=== PATIENT | female | born 1960 | race Caucasian/White ===

== ENCOUNTER 2018-07-16 12:32 | Emergency (ER) | payer MEDICAID ==
[~2018-07-16] VITALS: Ht 170.2 cm; Wt 70.5 kg
[2018-07-16 13:33] LABS: BASOPHILS # (AUTO) 0.04 x10^3/uL (0-0.1); BASOPHILS % (AUTO) 1 % (0-1); EOSINOPHILS # (AUTO) 0.05 x10^3/uL (0-0.4); EOSINOPHILS % (AUTO) 1 % (1-7); LYMPHOCYTES # (AUTO) 1.33 x10^3/uL (1-3.4); LYMPHOCYTES % (AUTO) 18 % (22-44); MD NO; MEAN CORPUSCULAR HEMOGLOBIN 31.2 pg (27.0-34.8); MEAN CORPUSCULAR HGB CONC 33.3 g/dL (32.4-35.8); MEAN CORPUSCULAR VOLUME 93.7 fL (80-100); MEAN PLATELET VOLUME 8.6 fL (7.4-10.4); MONOCYTES # (AUTO) 1.09 x10^3/uL (0.2-0.8); MONOCYTES % (AUTO) 15 % (2-9); NEUTROPHILS # (AUTO) 4.91 x10^3/uL (1.8-6.8); NEUTROPHILS % (AUTO) 66 % (42-75); PLATELET COUNT 267 x10^3/uL (130-400); RED BLOOD COUNT 4.84 x10^6/uL (3.82-5.3); RED CELL DISTRIBUTION WIDTH 15.7 % (9.6-15.2)
[2018-07-16 13:42] LABS: ALANINE AMINOTRANSFERASE 82 U/L (12-78); ALBUMIN 3.4 g/dL (3.4-5.0); ANION GAP 10 mmol/L (5-15); CALCIUM 8.9 mg/dL (8.5-10.1); CHLORIDE 102 mmol/L (98-107)
[2018-07-16 13:45] LABS: ALKALINE PHOSPHATASE 180 U/L (45-117); BILIRUBIN,TOTAL 1.1 mg/dL (0.2-1.0); TOTAL PROTEIN 7.7 g/dL (6.4-8.2)
[2018-07-16 14:28] LABS: CULTURE INDICATED? YES; MICROSCOPIC INDICATED
[2018-07-16 14:44] VITALS: BP 133/88
[2018-07-16 14:58] LABS: CLOSTRIDIUM DIFFICILE ANTIGEN NEGATIVE; CLOSTRIDIUM DIFFICILE TOXIN NEGATIVE (Negative)
[2018-07-16] MEDS ORDERED: POTASSIUM CHLORIDE 20 MEQ TAB.ER.PRT PO ONE (15:30)
[2018-07-16] MEDS ORDERED: POTASSIUM CHLORIDE 20 MEQ TAB.ER.PRT ONE (15:36)
== END 2018-07-16 15:58 | disposition home or self-care (01) ==
LOC: ED 15:15
DX: K70.10 Alcoholic hepatitis without ascites (principal); R10.32 Left lower quadrant pain; R19.7 Diarrhea, unspecified; E87.6 Hypokalemia; I10 Essential (primary) hypertension; Z85.3 Personal history of malignant neoplasm of breast
CPT/HCPCS: 36415; 80053; 81001; 85025; 87086; 87324; 89055; 99284

== ENCOUNTER 2018-07-21 08:44 | Inpatient (IN) | payer MEDICAID ==
[~2018-07-21] VITALS: Ht 170.2 cm; Wt 67.0 kg
[2018-07-21] MEDS ORDERED: BISO1TAB14 PO (10:16)
[2018-07-21] MEDS ORDERED: EXEM25TA PO-COUM (10:16)
[2018-07-21 10:31] LABS: INTERNATIONAL NORMALIZED RATIO 1.01 (0.93-1.1); PROTHROMBIN TIME 10.4 Seconds (9.6-11.5)
[2018-07-21 10:33] LABS: ALANINE AMINOTRANSFERASE 51 U/L (12-78); ALBUMIN 2.9 g/dL (3.4-5.0); ANION GAP 10 mmol/L (5-15); CHLORIDE 98 mmol/L (98-107); CREATININE 0.53 mg/dL (0.55-1.02)
[2018-07-21 10:35] LABS: ALKALINE PHOSPHATASE 177 U/L (45-117); BILIRUBIN,TOTAL 0.7 mg/dL (0.2-1.0); TOTAL PROTEIN 7.2 g/dL (6.4-8.2)
[2018-07-21 10:42] LABS: MEAN CORPUSCULAR HEMOGLOBIN 30.7 pg (27.0-34.8); MEAN CORPUSCULAR HGB CONC 33.2 g/dL (32.4-35.8); MEAN CORPUSCULAR VOLUME 92.3 fL (80-100); MEAN PLATELET VOLUME 8.1 fL (7.4-10.4); PLATELET COUNT 462 x10^3/uL (130-400); RED BLOOD COUNT 4.81 x10^6/uL (3.82-5.3); RED CELL DISTRIBUTION WIDTH 15.5 % (9.6-15.2)
[2018-07-21 10:59] LABS: CULTURE INDICATED? YES; MICROSCOPIC INDICATED
[2018-07-21 11:14] LABS: BASOPHILS # (AUTO) 0.03 x10^3/uL (0-0.1); BASOPHILS % (AUTO) 0 % (0-1); EOSINOPHILS # (AUTO) 0.02 x10^3/uL (0-0.4); EOSINOPHILS % (AUTO) 0 % (1-7); LYMPHOCYTES # (AUTO) 0.91 x10^3/uL (1-3.4); LYMPHOCYTES % (AUTO) 10 % (22-44); MD SCAN; MONOCYTES # (AUTO) 1.21 x10^3/uL (0.2-0.8); MONOCYTES % (AUTO) 13 % (2-9); NEUTROPHILS # (AUTO) 7.21 x10^3/uL (1.8-6.8); NEUTROPHILS % (AUTO) 77 % (42-75)
[2018-07-21] MEDS ORDERED: OMNIPAQUE 350 MG/ML, 100ML BOTTLE ONE (12:18)
[2018-07-21] MEDS ORDERED: CEFEPIME 1 GM in DEXTROSE 5% 50 ML IV ONE (13:30)
[2018-07-21] MEDS ORDERED: METRONIDAZOLE PMX 500MG/100ML 100 ML IV ONE (13:30)
[2018-07-21 14:30] VITALS: BP 164/101
[2018-07-21 14:38] VITALS: BP 164/101
[2018-07-21] MEDS ORDERED: morphine SULFATE 10 MG/ML, 1ML IVPush PRN (15:30)
[2018-07-21] MEDS ORDERED: ONDANSETRON 2MG/ML, 2ML IVPush PRN (15:30)
[2018-07-21] MEDS ORDERED: PROMETHAZINE 25 MG/ML, 1ML IM PRN (15:30)
[2018-07-21] MEDS ORDERED: hydrALAzine 20 MG/ML, 1ML IVPush PRN (15:30)
[2018-07-21] MEDS ORDERED: NICOTINE 14MG/24 HR PATCH.TD24 TD SCH (16:30)
[2018-07-21] MEDS: PIPERACILLIN/TAZO/PMX 3.375GM 50 ML IV SCH ×2 (16:49→22:12)
[2018-07-21] MEDS: NS + 20MEQ KCL 1,000 ML IV SCH (16:49)
[2018-07-21 18:07] VITALS: BP 147/85
[2018-07-21] MEDS: HYDROmorphone 2 MG/ML, 1ML IVPush PRN ×3 (18:49→22:20)
[2018-07-21 19:37] VITALS: BP 151/85
[2018-07-22 02:47] VITALS: BP 142/90
[2018-07-22] MEDS: HYDROmorphone 2 MG/ML, 1ML IVPush PRN ×2 (03:14→05:16)
[2018-07-22] MEDS: NS + 20MEQ KCL 1,000 ML IV SCH (04:55)
[2018-07-22] MEDS: PIPERACILLIN/TAZO/PMX 3.375GM 50 ML IV SCH (05:03)
[2018-07-22 05:26] LABS: BASOPHILS # (AUTO) 0.05 x10^3/uL (0-0.1); BASOPHILS % (AUTO) 1 % (0-1); EOSINOPHILS # (AUTO) 0.04 x10^3/uL (0-0.4); EOSINOPHILS % (AUTO) 1 % (1-7); LYMPHOCYTES # (AUTO) 1.21 x10^3/uL (1-3.4); LYMPHOCYTES % (AUTO) 15 % (22-44); MD NO; MEAN CORPUSCULAR HEMOGLOBIN 30.7 pg (27.0-34.8); MEAN CORPUSCULAR HGB CONC 33.1 g/dL (32.4-35.8); MEAN PLATELET VOLUME 7.9 fL (7.4-10.4); MONOCYTES # (AUTO) 1.26 x10^3/uL (0.2-0.8); MONOCYTES % (AUTO) 16 % (2-9); NEUTROPHILS # (AUTO) 5.47 x10^3/uL (1.8-6.8); NEUTROPHILS % (AUTO) 68 % (42-75); PLATELET COUNT 403 x10^3/uL (130-400); RED BLOOD COUNT 4.47 x10^6/uL (3.82-5.3); RED CELL DISTRIBUTION WIDTH 15.3 % (9.6-15.2)
[2018-07-22 05:40] LABS: CHLORIDE 102 mmol/L (98-107)
[2018-07-22 05:55] LABS: ALANINE AMINOTRANSFERASE 37 U/L (12-78); ALBUMIN 2.5 g/dL (3.4-5.0); ALKALINE PHOSPHATASE 136 U/L (45-117); ANION GAP 9 mmol/L (5-15); BILIRUBIN,TOTAL 0.8 mg/dL (0.2-1.0); CALCIUM 8.2 mg/dL (8.5-10.1); CREATININE 0.62 mg/dL (0.55-1.02); TOTAL PROTEIN 6.3 g/dL (6.4-8.2)
[2018-07-22 08:41] VITALS: BP 125/85
[2018-07-22] MEDS ORDERED: FENTANYL PF 100 MCG/2ML ONE (12:08)
[2018-07-22] MEDS ORDERED: MIDAZOLAM 1 MG/ML, 2ML ONE ×2 (12:08→13:54)
[2018-07-22] MEDS ORDERED: LIDOCAINE-MPF 2% ,5ML ONE (12:28)
[2018-07-22] MEDS ORDERED: PROPOFOL 10 MG/ML, 20ML ONE (12:28)
[2018-07-22] MEDS ORDERED: DEXAMETHASONE 4 MG/ML, 1ML ONE (12:29)
[2018-07-22] MEDS ORDERED: EPHEDRINE 50 MG/ML, 1ML ONE (12:29)
[2018-07-22] MEDS ORDERED: METOCLOPRAMIDE 5 MG/ML, 2ML ONE (12:29)
[2018-07-22] MEDS ORDERED: ONDANSETRON 2MG/ML, 2ML ONE (12:29)
[2018-07-22] MEDS ORDERED: ROCURONIUM 10MG/ML,5ML ONE (12:30)
[2018-07-22] MEDS ORDERED: MEPERIDINE/PF 100 MG/ML ONE (12:42)
[2018-07-22] MEDS ORDERED: GLYCOPYRROLATE 0.4 MG/2 ML, 2ML ONE ×2 (13:16)
[2018-07-22] MEDS ORDERED: NEOSTIGMINE 1 MG/ML, 10ML ONE (13:16)
[2018-07-22] MEDS ORDERED: HYDROmorphone 2 MG/ML, 1ML ONE (13:55)
[2018-07-22] MEDS: HYDROmorphone 1 MG/ML, 1ML IV PRN ×4 (13:56→14:57)
[2018-07-22] MEDS ORDERED: hydrALAzine 20 MG/ML, 1ML ONE (13:58)
[2018-07-22] MEDS ORDERED: OXYcodone 5 MG/5 ML ORAL.SOL UDC PO PRN (14:00)
[2018-07-22] MEDS ORDERED: MEPERIDINE/PF 25MG/0.5ML IVPush PRN (14:00)
[2018-07-22] MEDS ORDERED: LABETALOL 5MG/ML, 20ML IV PRN (14:00)
[2018-07-22] MEDS ORDERED: ONDANSETRON 2MG/ML, 2ML IVPush PRN (14:00)
[2018-07-22] MEDS ORDERED: FENTANYL PF 100 MCG/2ML IV PRN (14:00)
[2018-07-22] MEDS: MIDAZOLAM 1 MG/ML, 2ML IV PRN ×2 (14:05→14:43)
[2018-07-22] MEDS ORDERED: hydrALAzine 20 MG/ML, 1ML IV PRN (14:30)
[2018-07-22 15:37] VITALS: BP 120/75
[2018-07-22] MEDS: morphine SULFATE 10 MG/ML, 1ML IV PRN ×3 (16:29→22:07)
[2018-07-22] MEDS ORDERED: LORazepam 2 MG/ML, 1ML IV PRN (16:30)
[2018-07-22] MEDS ORDERED: LORazepam 1MG TABLET PO PRN (16:30)
[2018-07-22] MEDS ORDERED: ONDANSETRON 2MG/ML, 2ML IV PRN (16:30)
[2018-07-22] MEDS: CEFOTETAN PMX 1GM/50ML 50 ML IVPB SCH (16:42)
[2018-07-22] MEDS: POTASSIUM CHLORIDE 20 MEQ in D5%-0.45% NACL 1,000 ML IV SCH (16:42)
[2018-07-22] MEDS: METRONIDAZOLE PMX 500MG/100ML 100 ML IVPB SCH (18:14)
[2018-07-22 18:45] VITALS: BP 119/77
[2018-07-22] MEDS: ENOXAPARIN 40 MG/0.4 ML SQ SCH (20:32)
[2018-07-22 23:56] VITALS: BP 122/70
[2018-07-23] MEDS: POTASSIUM CHLORIDE 20 MEQ in D5%-0.45% NACL 1,000 ML IV SCH ×3 (01:12→19:49)
[2018-07-23] MEDS: morphine SULFATE 10 MG/ML, 1ML IV PRN ×7 (01:12→20:51)
[2018-07-23] MEDS: METRONIDAZOLE PMX 500MG/100ML 100 ML IVPB SCH ×3 (01:12→17:43)
[2018-07-23 02:41] VITALS: BP 131/78
[2018-07-23] MEDS: CEFOTETAN PMX 1GM/50ML 50 ML IVPB SCH ×2 (04:52→16:13)
[2018-07-23 05:40] LABS: BASOPHILS # (AUTO) 0.02 x10^3/uL (0-0.1); BASOPHILS % (AUTO) 0 % (0-1); EOSINOPHILS # (AUTO) 0.02 x10^3/uL (0-0.4); EOSINOPHILS % (AUTO) 0 % (1-7); LYMPHOCYTES # (AUTO) 1.24 x10^3/uL (1-3.4); LYMPHOCYTES % (AUTO) 13 % (22-44); MD NO; MEAN CORPUSCULAR HEMOGLOBIN 31.1 pg (27.0-34.8); MEAN CORPUSCULAR HGB CONC 33.4 g/dL (32.4-35.8); MEAN CORPUSCULAR VOLUME 93.4 fL (80-100); MONOCYTES # (AUTO) 1.15 x10^3/uL (0.2-0.8); MONOCYTES % (AUTO) 12 % (2-9); NEUTROPHILS # (AUTO) 7.02 x10^3/uL (1.8-6.8); NEUTROPHILS % (AUTO) 74 % (42-75); PLATELET COUNT 443 x10^3/uL (130-400); RED BLOOD COUNT 4.44 x10^6/uL (3.82-5.3); RED CELL DISTRIBUTION WIDTH 15.1 % (9.6-15.2)
[2018-07-23 05:50] LABS: ALBUMIN 2.4 g/dL (3.4-5.0); ANION GAP 6 mmol/L (5-15); CALCIUM 8.1 mg/dL (8.5-10.1); CHLORIDE 101 mmol/L (98-107)
[2018-07-23 05:53] LABS: ALANINE AMINOTRANSFERASE 29 U/L (12-78); ALKALINE PHOSPHATASE 106 U/L (45-117); BILIRUBIN,TOTAL 0.6 mg/dL (0.2-1.0)
[2018-07-23 07:32] VITALS: BP 138/82
[2018-07-23] MEDS: EXEMESTANE 25 MG PO SCH (09:00)
[2018-07-23] MEDS: BISOPROLOL PO SCH ×2 (09:00→17:53)
[2018-07-23] MEDS: HCTZ PO SCH ×2 (09:00→17:53)
[2018-07-23 13:06] VITALS: BP 145/81
[2018-07-23] MEDS ORDERED: MORPHINE SULFATE 4 MG/ML, 1ML ONE (16:19)
[2018-07-23 19:00] VITALS: BP 137/84
[2018-07-23] MEDS: ENOXAPARIN 40 MG/0.4 ML SQ SCH (19:49)
[2018-07-24 01:01] VITALS: BP 134/87
[2018-07-24] MEDS: METRONIDAZOLE PMX 500MG/100ML 100 ML IVPB SCH ×3 (01:04→17:23)
[2018-07-24] MEDS: morphine SULFATE 10 MG/ML, 1ML IV PRN ×6 (04:13→22:44)
[2018-07-24] MEDS: CEFOTETAN PMX 1GM/50ML 50 ML IVPB SCH ×2 (04:30→16:18)
[2018-07-24] MEDS: POTASSIUM CHLORIDE 20 MEQ in D5%-0.45% NACL 1,000 ML IV SCH ×2 (05:15→15:23)
[2018-07-24 05:24] LABS: BASOPHILS # (AUTO) 0.02 x10^3/uL (0-0.1); BASOPHILS % (AUTO) 0 % (0-1); EOSINOPHILS # (AUTO) 0.17 x10^3/uL (0-0.4); EOSINOPHILS % (AUTO) 2 % (1-7); LYMPHOCYTES # (AUTO) 0.83 x10^3/uL (1-3.4); LYMPHOCYTES % (AUTO) 10 % (22-44); MD NO; MEAN CORPUSCULAR HEMOGLOBIN 30.6 pg (27.0-34.8); MEAN CORPUSCULAR HGB CONC 32.6 g/dL (32.4-35.8); MEAN PLATELET VOLUME 7.7 fL (7.4-10.4); MONOCYTES # (AUTO) 0.83 x10^3/uL (0.2-0.8); MONOCYTES % (AUTO) 10 % (2-9); NEUTROPHILS # (AUTO) 6.62 x10^3/uL (1.8-6.8); NEUTROPHILS % (AUTO) 78 % (42-75); PLATELET COUNT 389 x10^3/uL (130-400); RED BLOOD COUNT 4.24 x10^6/uL (3.82-5.3); RED CELL DISTRIBUTION WIDTH 15.1 % (9.6-15.2)
[2018-07-24 05:33] LABS: CHLORIDE 100 mmol/L (98-107)
[2018-07-24 05:36] LABS: ANION GAP 6 mmol/L (5-15); CALCIUM 7.8 mg/dL (8.5-10.1); CREATININE 0.48 mg/dL (0.55-1.02)
[2018-07-24 07:36] VITALS: BP 146/88
[2018-07-24] MEDS: EXEMESTANE 25 MG PO SCH (08:49)
[2018-07-24] MEDS: FAMOTIDINE 20 MG/2 ML IVPush SCH ×2 (12:04→22:53)
[2018-07-24 15:19] VITALS: BP 146/92
[2018-07-24] MEDS: ENOXAPARIN 40 MG/0.4 ML SQ SCH (22:53)
[2018-07-25] MEDS: METRONIDAZOLE PMX 500MG/100ML 100 ML IVPB SCH ×3 (01:03→18:14)
[2018-07-25] MEDS: NICOTINE 14MG/24 HR PATCH.TD24 TD SCH (01:03)
[2018-07-25] MEDS: morphine SULFATE 10 MG/ML, 1ML IV PRN ×8 (01:03→23:58)
[2018-07-25 01:59] VITALS: BP 137/94
[2018-07-25] MEDS: CEFOTETAN PMX 1GM/50ML 50 ML IVPB SCH ×2 (05:07→16:30)
[2018-07-25] MEDS: POTASSIUM CHLORIDE 20 MEQ in D5%-0.45% NACL 1,000 ML IV SCH (05:07)
[2018-07-25 05:18] LABS: ANION GAP 7 mmol/L (5-15); CALCIUM 7.7 mg/dL (8.5-10.1); CHLORIDE 102 mmol/L (98-107); CREATININE 0.58 mg/dL (0.55-1.02)
[2018-07-25 07:52] VITALS: BP 145/94
[2018-07-25] MEDS ORDERED: MORPHINE SULFATE 4 MG/ML, 1ML ONE ×2 (08:22→12:39)
[2018-07-25] MEDS: BISOPROLOL PO SCH (08:24)
[2018-07-25] MEDS: HCTZ PO SCH (08:24)
[2018-07-25] MEDS: FAMOTIDINE 20 MG/2 ML IVPush SCH ×2 (08:24→20:56)
[2018-07-25] MEDS: EXEMESTANE 25 MG PO SCH (09:00)
[2018-07-25 14:20] VITALS: BP 132/87
[2018-07-25] MEDS ORDERED: POTASSIUM CHLORIDE 20 MEQ in D5%-0.45% NACL 1,000 ML IV SCH (16:30)
[2018-07-25] MEDS ORDERED: EXEM25TA PO (19:41)
[2018-07-25 19:52] VITALS: BP 127/79
[2018-07-25] MEDS ORDERED: EXEMESTANE 25 MG PO SCH (20:09)
[2018-07-25] MEDS: ENOXAPARIN 40 MG/0.4 ML SQ SCH (20:56)
[2018-07-26] MEDS: METRONIDAZOLE PMX 500MG/100ML 100 ML IVPB SCH ×3 (01:11→17:42)
[2018-07-26] MEDS: NICOTINE 14MG/24 HR PATCH.TD24 TD SCH (01:12)
[2018-07-26 01:18] VITALS: BP 121/81
[2018-07-26] MEDS: CEFOTETAN PMX 1GM/50ML 50 ML IVPB SCH ×2 (04:33→16:41)
[2018-07-26 05:42] LABS: CHLORIDE 103 mmol/L (98-107)
[2018-07-26 05:48] LABS: ANION GAP 6 mmol/L (5-15); CALCIUM 8.3 mg/dL (8.5-10.1); CREATININE 0.77 mg/dL (0.55-1.02)
[2018-07-26 06:45] VITALS: BP_SYST 154; BP_SYST 164; BP_DIAS 100; BP_DIAS 85
[2018-07-26] MEDS: EXEMESTANE 25 MG PO SCH (08:30)
[2018-07-26] MEDS: HCTZ PO SCH (08:30)
[2018-07-26] MEDS: FAMOTIDINE 20 MG/2 ML IVPush SCH ×2 (08:30→20:07)
[2018-07-26] MEDS: BISOPROLOL PO SCH (08:30)
[2018-07-26] MEDS: morphine SULFATE 10 MG/ML, 1ML IV PRN ×6 (08:42→22:59)
[2018-07-26] MEDS ORDERED: OXYcodone 5 MG/5 ML ORAL.SOL UDC PO PRN (12:00)
[2018-07-26 13:03] VITALS: BP 119/80
[2018-07-26] MEDS ORDERED: IBUPROFEN 200 MG TABLET PO PRN (16:00)
[2018-07-26] MEDS ORDERED: ACETAMINOPHEN 325 MG TABLET PO PRN (16:00)
[2018-07-26 19:56] VITALS: BP 152/94
[2018-07-26] MEDS ORDERED: MORPHINE SULFATE 4 MG/ML, 1ML ONE ×2 (20:05→22:55)
[2018-07-26] MEDS: ENOXAPARIN 40 MG/0.4 ML SQ SCH (20:08)
[2018-07-27] MEDS: METRONIDAZOLE PMX 500MG/100ML 100 ML IVPB SCH ×2 (01:02→09:04)
[2018-07-27] MEDS: NICOTINE 14MG/24 HR PATCH.TD24 TD SCH (01:02)
[2018-07-27 02:04] VITALS: BP 156/91
[2018-07-27] MEDS: CEFOTETAN PMX 1GM/50ML 50 ML IVPB SCH ×2 (04:43→16:35)
[2018-07-27] MEDS ORDERED: MORPHINE SULFATE 4 MG/ML, 1ML ONE (04:46)
[2018-07-27] MEDS: morphine SULFATE 10 MG/ML, 1ML IV PRN (04:47)
[2018-07-27 05:29] LABS: BASOPHILS # (AUTO) 0.06 x10^3/uL (0-0.1); BASOPHILS % (AUTO) 1 % (0-1); EOSINOPHILS # (AUTO) 0.32 x10^3/uL (0-0.4); EOSINOPHILS % (AUTO) 5 % (1-7); HCT (SEDRATE) 38.6 % (34.6-47.8); LYMPHOCYTES # (AUTO) 1.38 x10^3/uL (1-3.4); LYMPHOCYTES % (AUTO) 20 % (22-44); MD NO; MEAN CORPUSCULAR HEMOGLOBIN 30.5 pg (27.0-34.8); MEAN CORPUSCULAR HGB CONC 32.8 g/dL (32.4-35.8); MEAN PLATELET VOLUME 7.8 fL (7.4-10.4); MONOCYTES # (AUTO) 1.19 x10^3/uL (0.2-0.8); MONOCYTES % (AUTO) 17 % (2-9); NEUTROPHILS # (AUTO) 4.03 x10^3/uL (1.8-6.8); NEUTROPHILS % (AUTO) 58 % (42-75); PLATELET COUNT 462 x10^3/uL (130-400); RED BLOOD COUNT 4.18 x10^6/uL (3.82-5.3); RED CELL DISTRIBUTION WIDTH 15.1 % (9.6-15.2)
[2018-07-27 05:43] LABS: CHLORIDE 103 mmol/L (98-107)
[2018-07-27 05:48] LABS: ANION GAP 8 mmol/L (5-15); CALCIUM 8.5 mg/dL (8.5-10.1); CREATININE 0.68 mg/dL (0.55-1.02)
[2018-07-27 06:20] VITALS: BP 168/95
[2018-07-27] MEDS: FAMOTIDINE 20 MG/2 ML IVPush SCH (09:04)
[2018-07-27] MEDS: EXEMESTANE 25 MG PO SCH (09:04)
[2018-07-27] MEDS: HCTZ PO SCH (09:04)
[2018-07-27] MEDS: BISOPROLOL PO SCH (09:04)
[2018-07-27] MEDS ORDERED: IBUP-1484 PO (10:54)
[2018-07-27] MEDS ORDERED: LEVO750T26 PO (10:54)
[2018-07-27] MEDS ORDERED: FAMO20TA37 PO (10:54)
[2018-07-27] MEDS ORDERED: TRAM50TA2 PO (10:54)
[2018-07-27] MEDS ORDERED: ACET325T14 PO (10:54)
[2018-07-27] MEDS ORDERED: METR500T PO (10:54)
[2018-07-27 13:11] VITALS: BP 145/91
[2018-07-27 17:10] VITALS: BP 126/80
== END 2018-07-27 17:36 | disposition home health service (06) | DRG 330 ==
LOC: ED 13:17 → UNDOADMIN 13:18 → 4NOR 13:18 → EDIP 13:18 → ED 13:29 → EDIP 14:26 → 4NOR 14:26
PROVIDERS: ADMIT Internal Medicine; ATTEND Internal Medicine
PROC: 0D1H0Z4 Bypass Cecum to Cutaneous, Open Approach (ICD-10-PCS; 2018-07-22)
PROC: 0DTJ0ZZ Resection of Appendix, Open Approach (ICD-10-PCS; 2018-07-22)
PROC: 0DTN0ZZ Resection of Sigmoid Colon, Open Approach (ICD-10-PCS; principal; 2018-07-22 12:15)
DX: K57.20 Diverticulitis of large intestine with perforation and abscess without bleeding (principal); K56.7 Ileus, unspecified; R65.10 Systemic inflammatory response syndrome (SIRS) of non-infectious origin without acute organ dysfunction; E44.0 Moderate protein-calorie malnutrition; E87.1 Hypo-osmolality and hyponatremia; D72.829 Elevated white blood cell count, unspecified; I10 Essential (primary) hypertension; E87.6 Hypokalemia; F17.210 Nicotine dependence, cigarettes, uncomplicated; D47.3 Essential (hemorrhagic) thrombocythemia; Z85.3 Personal history of malignant neoplasm of breast; Z82.49 Family history of ischemic heart disease and other diseases of the circulatory system; Z90.13 Acquired absence of bilateral breasts and nipples; Z90.89 Acquired absence of other organs; Z88.1 Allergy status to other antibiotic agents
CPT/HCPCS: 36415; 74021; 99285; S0028; 74177; 80048; 80053; 81001; 82040; 83605; 83690; 83735; 84100; 84443; 85025; 85610; 85651; 87086; 88302; 88307; 88329; 96374; J0692; J1100; J1170; J1650; J2250; J2405; J2543; J2704; J2710; J3010; J3480; J3490; Q9967; J0360; J2060; J2175; J2270; J2765; S0074

== ENCOUNTER → 2018-10-02 | Outpatient (CLI) | payer MEDICAID ==
[~2018-10-02] MED LIST: ACET325T14 PO; BISO1TAB14 PO; EXEM25TA PO; EXEM25TA PO-COUM; FAMO20TA37 PO; IBUP-1484 PO; LEVO750T26 PO; METR500T PO; TRAM50TA2 PO
== END | disposition home or self-care (01) ==
LOC: WOUND 14:55
PROVIDERS: ATTEND Family Medicine
DX: Z93.3 Colostomy status (principal); I10 Essential (primary) hypertension; F17.210 Nicotine dependence, cigarettes, uncomplicated; Z85.3 Personal history of malignant neoplasm of breast
CPT/HCPCS: 99215

== ENCOUNTER → 2018-10-09 | Outpatient (CLI) | payer MEDICAID | END | disposition home or self-care (01) | LOC: WOUND 11:06 | PROVIDERS: ATTEND Family Medicine | DX: Z93.3 Colostomy status (principal); I10 Essential (primary) hypertension; F17.210 Nicotine dependence, cigarettes, uncomplicated; Z85.3 Personal history of malignant neoplasm of breast | CPT/HCPCS: 99213 ==

== ENCOUNTER → 2018-10-20 | Outpatient (CLI) | payer MEDICAID ==
[~2018-10-20] MED LIST changes: +FLUO40CA2 PO
== END | disposition home or self-care (01) ==
LOC: STAR 14:32
PROVIDERS: ATTEND Surgery
DX: Z02.9 Encounter for administrative examinations, unspecified (principal)

== ENCOUNTER 2019-12-08 01:27 | Emergency (ER) | payer MEDICAID ==
[~2019-12-08] VITALS: Ht 170.2 cm; Wt 65.0 kg
[~2019-12-08 01:27] MED LIST changes: -IBUP-1484 PO; +IBUP-1902 PO
[2019-12-08 01:30] VITALS: BP 147/82
--- NOTE | 2019-12-08 01:58 | NUR ---
REPORT RECEIVED FROM EDITH HARRINGTON. ASSUMED CARE OF PT
--- NOTE | 2019-12-08 02:55 | NUR ---
PT AMBULATORY TO RESTROOM, STEADY GAIT NOTED
--- NOTE | 2019-12-08 03:06 | NUR ---
PT BACK TO BED WITHOUT DIFFICULTY. XRAY READ BACK, CHART UP FOR RECHECK
--- NOTE | 2019-12-08 03:46 | NUR ---
IV REMOVED. GUILLERMINA DUNN AT BEDSIDE UPDATING PT ON FRACTURE AND POC. PT BECAME UPSET THAT THE PA WON'T GIVE HER ANY PAIN MEDICATION. PT OFFERED NONNARCOTICS AND REFUSED THEM. PT WAS EDUCATED THAT HER HIGH BLOOD ALCOHOL LEVEL IS THE REASON SHE CANNOT RECIEVE AND NARCOTICS.
--- NOTE | 2019-12-08 04:17 | NUR ---
PT PROVIDED WITH A CAB VOUCHER
--- NOTE | 2019-12-08 04:18 | NUR ---
Patient/Caregiver given discharge instructions and they have confirmed that they understand the instructions. Patient ambulatory with steady gait.
== END 2019-12-08 04:19 | disposition home or self-care (01) ==
LOC: ED 02:33
DX: S42.225A 2-part nondisplaced fracture of surgical neck of left humerus, initial encounter for closed fracture (principal); F10.220 Alcohol dependence with intoxication, uncomplicated; I10 Essential (primary) hypertension; Z85.3 Personal history of malignant neoplasm of breast; F17.210 Nicotine dependence, cigarettes, uncomplicated; W18.30XA Fall on same level, unspecified, initial encounter; Y93.89 Activity, other specified; Y92.89 Other specified places as the place of occurrence of the external cause; Y99.8 Other external cause status; Y90.9 Presence of alcohol in blood, level not specified
CPT/HCPCS: 29105; 99283

== ENCOUNTER 2020-12-03 00:16 | Emergency (ER) | payer MEDICAID ==
[~2020-12-03] VITALS: Ht 170.2 cm; Wt 65.0 kg
[~2020-12-03 00:16] MED LIST changes: -BISO1TAB14 PO; +BISO1TAB93 PO
[2020-12-03] MEDS ORDERED: SODIUM CHLORIDE FLUSH 10ML SYR IVF ONE (00:30)
--- NOTE | 2020-12-03 00:31 | NUR ---
THIS S A 60F BIB EMS FROM HOME FOR CHEST TIGHTNESS/ PRESSURE X1.5HRS PT DENIES CARDIAC HX BUT DOES HAVE HX OF HTN. PT ARRIVES SPEAKING IN FULL SENTENCES AND IS CALM AND COOPERATIVE AND CONNECTED TO ALL MONITORING. 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 PIV IN PLACE UPON ARRIVAL
--- NOTE | 2020-12-03 01:00 | NUR ---
PT SITTING UPRIGHT ON GURNEY, NAD, VSS. PT PROVIDED WARM BLANKETS AND PEAR PAW WARMER PER REQUEST. PT DENIES ANY ADDITIONAL NEEDS AT THIS TIME. CALL LIGHT AND PERSONAL BELONGINGS WITHIN REACH.
--- NOTE | 2020-12-03 01:22 | NUR ---
TASK RN: PT RESTING ON GURNEY AWAITING LAB RESULTS AT THIS TIME FOR DISPO. PT CONTINUES TO BE CONNECTED TO MONITORING VSS. NO NEEDS AT THIS TIME
[2020-12-03 01:36] LABS: BASOPHILS % (AUTO) 0 % (0-1); EOSINOPHILS % (AUTO) 1 % (1-7); LYMPHOCYTES % (AUTO) 13 % (22-44); MEAN CORPUSCULAR HEMOGLOBIN 27.8 pg (27.0-34.8); MEAN CORPUSCULAR HGB CONC 32.6 g/dL (32.4-35.8); MEAN PLATELET VOLUME 7.9 fL (7.4-10.4); MONOCYTES % (AUTO) 9 % (2-9); NEUTROPHILS % (AUTO) 78 % (42-75); PLATELET COUNT 271 x10^3/uL (130-400); RED BLOOD COUNT 5.01 x10^6/uL (3.82-5.3)
[2020-12-03 01:40] LABS: MD NO
[2020-12-03 01:46] LABS: ALANINE AMINOTRANSFERASE 34 U/L (12-78); ALBUMIN 3.7 g/dL (3.4-5.0); ANION GAP 6 mmol/L (5-15); CALCIUM 9.2 mg/dL (8.5-10.1); CHLORIDE 107 mmol/L (98-107); CREATININE 0.89 mg/dL (0.55-1.02)
[2020-12-03 01:51] LABS: ALKALINE PHOSPHATASE 86 U/L (45-117); BILIRUBIN,TOTAL 0.4 mg/dL (0.2-1.0); TOTAL PROTEIN 7.1 g/dL (6.4-8.2); TROPONIN I < 0.015 ng/mL (0.000-0.045)
--- NOTE | 2020-12-03 02:22 | NUR ---
ERP AT BEDSIDE
[2020-12-03] MEDS ORDERED: AZITHROMYCIN 500 MG TABLET PO ONE (02:30)
[2020-12-03] MEDS ORDERED: AZITHROMYCIN 250 MG TABLET ONE (02:45)
[2020-12-03 03:09] VITALS: BP 112/62
== END 2020-12-03 03:44 | disposition home or self-care (01) ==
LOC: ED 01:28
DX: J18.9 Pneumonia, unspecified organism (principal); Z20.822 Contact with and (suspected) exposure to COVID-19; R07.89 Other chest pain; R94.31 Abnormal electrocardiogram [ECG] [EKG]; I10 Essential (primary) hypertension; F17.200 Nicotine dependence, unspecified, uncomplicated
CPT/HCPCS: 36415; 71045; 80053; 84484; 85025; 87635; 93005; 99285